=== PATIENT | female | born 1990 | race Caucasian/White ===

== ENCOUNTER 2016-12-02 22:20 | Emergency (ER) | payer BC ==
--- NOTE | 2016-12-03 01:36 | ED ---
Abdominal Pain/Female - HPI Summary HPI Summary: Pt here w/ LLQ pain. Pain started prior to period last week - saw PCP who recommended waiting until end of menstruation ended to see if she felt better and she did. Pain has returned only in the past few days - worsening and wrapping around to Lt flank. Denies fever, chills, N/V/D, dysuria, urinary frequency but does feel fatigued by the pain. No URI sx, skin rashes or other indications for infection. H/o Lt ovarian cyst 27cm in size requiring surgical removal at 18 y.o - part of Lt ovary is still present. Pain now feels similar - only difference is timing. Has taken 600mg ibuprofen earlier today which provided some relief. Denies being sexually active (ever). Does not believe she could have a tampon stuck in her vaginal canal. Denies vaginal d/c, irritation, odor. BM's have been normal. Eating and drinking well. - History of Current Complaint Chief Complaint: EDAbdPain Stated Complaint: ABD PAIN Time Seen by Provider: 12/02/16 23:42 Hx Obtained From: Patient Pain Intensity: 5 Allergies/Adverse Reactions: Allergies Allergy/AdvReac Type Severity Reaction Status Date / Time Cefaclor [From [facility]] Allergy Rash Verified 12/02/16 22:24 PMH/Surg Hx/FS Hx/Imm Hx Previously Healthy: Yes Endocrine/Hematology History: Denies: Hx Anticoagulant Therapy, Hx Blood Disorders, Hx Thyroid Disease, Hx Anemia, Hx Unexplained Bleeding, Hx Coagulopothy, Autoimmune Disease GI History: Denies: Hx Crohn's Disease, Hx Irritable Bowel, Hx Ulcer History: Reports: Other Problems/Disorders - Lt side 27 cm ovarian cyst Denies: Hx Kidney Infection, Hx Kidney Stones Sensory History: Reports: Hx Contacts or Glasses Opthamlomology History: Reports: Hx Contacts or Glasses Infectious Disease History: No Infectious Disease History: Denies: Traveled Outside the [place] in Last 30 Days - Family History Known Family History: Positive: Other - breast cancer (mom) and other cancers - Social History Occupation: Student - Law at [employer] Lives: Alone Alcohol Use: None Hx Substance Use: No Substance Use Type: Reports: None Hx Tobacco Use: No Smoking Status (MU): Never Smoked Tobacco Review of Systems Constitutional: Negative Eyes: Negative ENT: Negative Cardiovascular: Negative Negative: Palpitations, Chest Pain Negative: Shortness Of Breath, Cough Gastrointestinal: Other - see HPI Positive: see HPI Musculoskeletal: Negative Skin: Negative Neurological: Negative Psychological: Normal - concerned All Other Systems Reviewed And Are Negative: Yes Physical Exam Triage Information Reviewed: Yes Vital Signs On Initial Exam: Initial Vitals Temp Pulse Resp BP Pulse Ox 99.5 F 68 18 110/76 99 12/02/16 22:22 12/02/16 22:22 12/02/16 22:22 12/02/16 22:22 12/02/16 22:22 Vital Signs Reviewed: Yes Appearance: Positive: Well-Appearing, Pain Distress - mild, Thin Skin: Positive: Warm, Dry - no erythema, no ecchymosis, no lesions over affected area Head/Face: Positive: Normal Head/Face Inspection Eyes: Positive: Normal, EOMI, Conjunctiva Clear - anicteric sclera ENT: Positive: Hearing grossly normal, Pharynx normal - mucosa moist Neck: Positive: Supple Respiratory/Lung Sounds: Positive: Clear to Auscultation, Breath Sounds Present. Negative: Rales, Rhonchi, Wheezes Cardiovascular: Positive: Normal, RRR, S1, S2. Negative: Murmur, Rub Abdomen Description: Positive: No Organomegaly, Soft, Other: - LLQ, Lt side, and to a lesser degree, Lt flank are all TTP - no rebounding. Negative: CVA Tenderness (R), CVA Tenderness (L) Bowel Sounds: Positive: Present Pelvic Exam: Positive: other - deferred by pt Musculoskeletal: Positive: Normal, Strength/ROM Intact Neurological: Positive: Normal, Sensory/Motor Intact, Alert, Oriented to Person Place, Time, CN Intact II-III Psychiatric: Positive: Anxious Diagnostics - Vital Signs Vital Signs Temp Pulse Resp BP Pulse Ox 12/02/16 22:22 99.5 F 68 18 110/76 99 - Laboratory Result Diagrams: 12/03/16 01:50 12/03/16 01:50 Lab Statement: Any lab studies that have been ordered have been reviewed, and results considered in the medical decision making process. Re-Evaluation - Re-Evaluation First Eval Change: Unchanged - pt declines pain medication throughout her stay despite explanation of what may work well. She eventually agreed to take naproxen at d/ c. Abdominal Pain Fem Course/Dx - Course Course Of Treatment: Pt presents w/ LLQ pain and h/o ovarian cyst. Her HPI and PE indicate cyst which an U/S confirms. Pt requests to have more in depth w/u which was performed and found to be negative for additional diagnoses triggering her sx. Lengthy conversation w/ mom over the phone discussing course of diagnosis and tx, including f/u w/ [facility]PER[facility] but that this was not an emergent medical condition, that the pt did not require admission and could f/u w/ [facility] OPER[facility] when they see appropriate. Pt and pt's mother voice understanding, mother requesting [facility] referral with 48 hours as she was coming to [facility] and could only be here for these days. Advised to call DRI[facility] PUNCH OPERATOR in AM to schedule an appointment. DRI[facility] PUNCH OPERATOR was not called as it was 2:30am and this was not an emergency requiring DRILL PUNCH OPERATOR consult while pt was in the ED. Reviewed danger s/sx w/ pt and mom of when to return to ED. Both voice understanding. - Diagnoses Provider Diagnoses: Ovarian cyst, left - Provider Notifications Discussed Care Of Patient With: Dr. Osorio Discharge - Discharge Plan Condition: Stable Disposition: HOME Patient Education Materials: Ovarian Cyst (ED) Forms: *School Release Referrals: Melida Caceres DO [Primary Care Provider] - Karlie Suero MD [Medical Doctor] - Additional Instructions: You appear to have a 2cm Left sided ovarian cyst. This may be treated with NSAID 's such as ibuprofen 800mg every 8 hours OR naproxen 500mg every 12 hour (do not take both). You may alternate acetaminophen 650mg every 6 hours. Heat pack and warm baths may also be helpful. You may try castor oil pack: [place] Oil Transdermal Packs A a castor oil transdermal pack can dramatically reduce the severity of symptoms throughout the cycle. This is the basic procedure: 1. A wash cloth should be soaked in pure, cold-pressed castor oil that is obtained from a health food store. 2. The wash cloth should be placed on bare skin on the lower stomach. 3. Put a piece of plastic on top of the cloth, such as a plastic grocery bag. 4. Place a hot water bottle on top of that. The water should be made as hot as possible, so long as the patient can tolerate it. 5. Leave this in place for at least 30 minutes. The above procedure can also be done repeatedly during the cycle to provide relief. However one treatment is usually enough to provide massive relief. Women should use only dioxin-free, unchlorinated feminine products, especially tampons. Consuming [place] nuts is ideal, because they contain folate, selenium, and magnesium, which have all been shown to reduce menstrual cramps. Follow-up with D[facility] P[facility] OPER[facility] this week. Call tomorrow to schedule an appointment. *If you develop worsening of pain, fever, chills, heavy vaginal bleeding, vomiting, diarrhea or difficulty urinating, return to ED
[2016-12-03 02:08] LABS: Hematocrit 41 % (35-47); Mean Corpuscular HGB Conc 34 g/dl (31-36); Mean Corpuscular Hemoglobin 30 pg (27-31); Mean Corpuscular Volume 90 fL (80-97); Mean Platelet Volume 7 um3 (7.4-10.4); Red Blood Count 4.61 10^6/ul (4.0-5.4); Red Cell Distribution Width 12 % (10.5-15); White Blood Count 7.5 10^3/ul (3.5-10.8)
[2016-12-03 02:27] LABS: ALT 13 U/L (7-52); AST 14 U/L (13-39); Albumin 4.2 g/dL (3.2-5.2); Alkaline Phosphatase 40 U/L (34-104); Anion Gap 5 mmol/L (2-11); BUN/Creatinine Ratio 30.4 (8-20); Blood Urea Nitrogen 21 mg/dL (6-24); C Reactive Protein < 1.00 mg/L (< 5.00); CO2 Carbon Dioxide 30 mmol/L (22-32); Calcium 9.4 mg/dL (8.6-10.3); Chloride 99 mmol/L (101-111); EGFR African American 134.4 (>60); EGFR Non-African American 104.5 (>60); Globulin 2.4 g/dL (2-4); Glucose 85 mg/dL (70-100); Potassium 3.7 mmol/L (3.5-5.0); Sodium 134 mmol/L (133-145); Total Protein 6.6 g/dL (6.4-8.9)
[2016-12-03 02:36] LABS: TSH (Thyroid Stimulating Horm) 2.24 mcIU/mL (0.34-5.60)
[2016-12-03 02:46] LABS: Urine Bilirubin Negative (Negative); Urine Glucose Negative (Negative); Urine Nitrite Negative (Negative)
[2016-12-03] MEDS ORDERED: Naproxen TAB* 250 MG PO ONE (02:54)
[2016-12-03 03:39] VITALS: BP 112/56
--- NOTE | 2016-12-03 07:44 | RAD ---
HISTORY: Left flank pain COMPARISONS: None TECHNIQUE: Multiple transverse and longitudinal ultrasound images were obtained of the left kidney using grayscale and color Doppler imaging. FINDINGS: RIGHT KIDNEY: No images are submitted of the right kidney. LEFT KIDNEY: The left kidney is normal in shape, size, contour, and echogenicity. There is no hydronephrosis or nephrolithiasis. The left kidney measures 9.7 x 4.5 x 4.4 cm. BLADDER: No images are submitted of the bladder. AORTA AND IVC: No images are submitted of the vasculature. RETROPERITONEUM: Unremarkable. OTHER: None. IMPRESSION: NO LEFT HYDRONEPHROSIS OR NEPHROLITHIASIS
--- NOTE | 2016-12-03 07:45 | RAD ---
INDICATION: 26-year-old with left adnexal pain COMPARISON: None TECHNIQUE: Longitudinal and transverse transabdominal scans of the pelvis were obtained. FINDINGS: Uterus: The uterus is normal in size. There are no focal masses. The uterus measures 6.0 x 2.7 x 4.0 cm. Endometrial thickness: The endometrial thickness is measured at 0.8 cm. . Free fluid: There is no significant free fluid . Ovaries: The ovaries are normal in size. The right ovary measures 1.8 x 1.4 x 1.4 cm. The left ovary measures 3.4 x 2.9 x 2.5 cm. There is a simple cyst in the right ovary measuring 1.9 x 1.1 x 2.0 cm. Doppler interrogation demonstrates flow to each ovary. Other: None IMPRESSION: 2 CM SIMPLE CYST RIGHT OVARY, OTHERWISE NEGATIVE.
== END 2016-12-03 03:38 | disposition home or self-care (01) ==
LOC: ED 22:20
DX: N83.202 Unspecified ovarian cyst, left side (principal); R10.32 Left lower quadrant pain
CPT/HCPCS: 36415; 76775; 76856; 80053; 81003; 83605; 84443; 85025; 86140; 99282; A9270-GY